=== PATIENT | male | born 1950 | race Caucasian/White ===

== ENCOUNTER 2023-06-01 03:33 | Emergency (ER) | payer OTHER ==
[~2023-06-01] VITALS: Ht 177.8 cm; Wt 64.0 kg
[~2023-06-01 03:33] MED LIST: ASPI-123 PO; CYCL-839 PO
[2023-06-01 04:02] LABS: Basophils # (auto) 0 10 ^3/uL (0-0.2); Basophils % (auto) 0.3 % (0.0-2.0); Eosinophils # (auto) 0.2 10 ^3/uL (0-0.8); Eosinophils % (auto) 2.7 % (0.0-7.0); Hematocrit 41.3 % (41.0-53.0); Hemoglobin 13.7 g/dL (13.5-17.5); Lymphocytes # (auto) 0.4 10 ^3/uL (0.4-5.4); Lymphocytes % (auto) 5.5 % (10.0-50.0); Mean Corpuscular Hemoglobin 29.4 pg (28.0-32.0); Mean Corpuscular Hgb Conc. 33.1 g/dL (32.0-36.0); Mean Corpuscular Volume 88.6 fL (80.0-100.0); Monocytes # (auto) 0.7 10 ^3/uL (0-1.3); Neutrophils # (auto) 5.9 10 ^3/uL (1.6-8.6); Neutrophils % (auto) 81.5 % (37.0-80.0); Red Blood Cells 4.66 10^6/uL (4.5-5.90); Red Cell Distribution Width 14.2 % (11.8-14.3); White Blood Cell 7.3 10^3/uL (4.4-10.8)
[2023-06-01 04:20] LABS: Alanine Aminotransferase 27 U/L (7-40); Albumin 4.3 g/dL (3.2-4.8); Alkaline Phosphatase 66 U/L (46-116); Anion Gap 9 (5-15); Aspartate Aminotransferase 31 U/L (13-40); Blood Urea Nitrogen 14 mg/dL (9-23); Calcium 9.2 mg/dL (8.7-10.4); Carbon Dioxide 23 mmol/L (20-30); Chloride 106 mmol/L (98-107); Glucose 96 mg/dL (74-106); Magnesium 1.8 mg/dL (1.6-2.6); Potassium 4.4 mmol/L (3.5-5.1); Sodium 138 mmol/L (136-145)
[2023-06-01 04:21] LABS: Bilirubin, Total 0.6 mg/dL (0.2-1.0); Total Protein 6.7 g/dL (5.7-8.2)
[2023-06-01 07:48] VITALS: BP 125/68; TEMP 100
[2023-06-01 08:09] VITALS: PULSE 113; RESP 17; O2SAT 96
== END 2023-06-01 08:17 | disposition home or self-care (01) ==
LOC: ER 03:33 → EDBD 03:33 → ER 08:13
DX: J44.9 Chronic obstructive pulmonary disease, unspecified (principal); I10 Essential (primary) hypertension; Z79.899 Other long term (current) drug therapy
CPT/HCPCS: 36415; 71045; 80053; 83735; 84484; 85025; 85379; 93005

== ENCOUNTER 2023-06-09 12:53 | Emergency (ER) | payer OTHER ==
[~2023-06-09] VITALS: Ht 177.8 cm; Wt 68.2 kg
[2023-06-09 14:06] LABS: Alanine Aminotransferase 40 U/L (7-40); Albumin 4.5 g/dL (3.2-4.8); Alkaline Phosphatase 79 U/L (46-116); Anion Gap 15 (5-15); Aspartate Aminotransferase 53 U/L (13-40); BUN/Creatinine Ratio 11.3 (10.0-20.0); Bilirubin, Total 0.7 mg/dL (0.2-1.0); Blood Urea Nitrogen 14 mg/dL (9-23); Calcium 9.5 mg/dL (8.5-10.1); Carbon Dioxide 20 mmol/L (20-30); Chloride 97 mmol/L (98-107); Glucose 86 mg/dL (74-106); Potassium 4.4 mmol/L (3.5-5.1); Sodium 132 mmol/L (136-145); Total Protein 7.3 g/dL (5.7-8.2)
[2023-06-09 14:11] LABS: Basophils # (auto) 0 10 ^3/uL (0-0.2); Basophils % (auto) 0.3 % (0.0-2.0); Eosinophils # (auto) 0.1 10 ^3/uL (0-0.8); Eosinophils % (auto) 1.2 % (0.0-7.0); Hematocrit 45.4 % (41.0-53.0); Hemoglobin 15.2 g/dL (13.5-17.5); Lymphocytes % (auto) 12.3 % (10.0-50.0); Mean Corpuscular Hemoglobin 29.2 pg (28.0-32.0); Mean Corpuscular Hgb Conc. 33.5 g/dL (32.0-36.0); Mean Corpuscular Volume 87.2 fL (80.0-100.0); Monocytes # (auto) 0.8 10 ^3/uL (0-1.3); Monocytes % (auto) 10.1 % (0.0-12.0); Neutrophils # (auto) 6.2 10 ^3/uL (1.6-8.6); Neutrophils % (auto) 76.1 % (37.0-80.0); Nucleated Red Blood Cells % 0.2 %; Red Blood Cells 5.21 10^6/uL (4.5-5.90); Red Cell Distribution Width 14.1 % (11.8-14.3); White Blood Cell 8.2 10^3/uL (4.4-10.8)
[2023-06-09] MEDS ORDERED: IOHEXOL 350 MG/ML 100ML IJ ONE (15:58)
[2023-06-09] MEDS ORDERED: IPRATROPIUM BROM 0.5 MG/2.5ML INH SOL NEB ONE (20:30)
[2023-06-09] MEDS ORDERED: ALBUTEROL SULF 2.5 MG/0.5ML(0.5%) NEB SOLN NEB ONE (20:30)
[2023-06-09] MEDS ORDERED: DexAMETHasone SOD PHOS 10MG/1ML VIAL INJ IM ONE (20:30)
[2023-06-09] MEDS ORDERED: TIOTCAP IN (20:35)
[2023-06-09] MEDS ORDERED: ALBU108A5 IN (20:35)
[2023-06-09] MEDS ORDERED: METH4PAK PO (20:35)
[2023-06-09 20:43] VITALS: PULSE 120; RESP 18; O2SAT 100
[2023-06-09 20:46] VITALS: BP 117/85; PULSE 120; RESP 18; TEMP 97.7; O2SAT 100
== END 2023-06-09 20:50 | disposition home or self-care (01) ==
LOC: EDBD 12:53 → ER 12:53 → EDUNIT# 12:53 → ER 20:50
DX: J44.1 Chronic obstructive pulmonary disease with (acute) exacerbation (principal); I10 Essential (primary) hypertension
CPT/HCPCS: 36415; 71046; 71275; 80053; 84484; 85025; 85379; 93005; 94640; 96372; 99285; J1100; J7644; Q9967